=== PATIENT | female | born 1980 | race Caucasian/White ===

== ENCOUNTER 2020-08-13 13:43 | Emergency (ER) | payer OTHER ==
[~2020-08-13 13:43] MED LIST: FIORICET TAB1 EA PO; LEVAQUIN500 MG PO; NICOTINE PATCH1 EAC1 TD; OXYCODONE HCL5 MG PO; PREVPAC PATIEN1 EACH PO; PROTONIX40 MG PO; REMERON15 MG PO; ROXICODONE TAB 55 MG PO; ZOFRAN 4 MG TAB4 MG PO; [UNRECOGNIZED DRUG - OTHER] PO
[2020-08-13 15:29] LABS: HEMOGLOBIN 7.7 gm/dl (12.3-15.3); RED BLOOD COUNT 3.66 M/UL (4.00-5.10); WHITE BLOOD COUNT 19.9 K/UL (4.5-11.0)
[2020-08-13 16:42] LABS: BUN/CREATININE RATIO 14 (0-10)
== END 2020-08-13 22:16 | disposition home or self-care (01) ==
LOC: ER1 13:43
PROVIDERS: Physician Assistant
DX: A41.9 Sepsis, unspecified organism (principal); K65.1 Peritoneal abscess; R19.7 Diarrhea, unspecified; E11.9 Type 2 diabetes mellitus without complications; F17.200 Nicotine dependence, unspecified, uncomplicated; Z86.711 Personal history of pulmonary embolism; Z90.710 Acquired absence of both cervix and uterus; Z88.5 Allergy status to narcotic agent; Z87.19 Personal history of other diseases of the digestive system
CPT/HCPCS: 80053; 82150; 82272; 83605; 83690; 84703; 85025; 86850; 86900; 86901; 87040; 96365; 96366; 96368; 96375; 96376; 99285; C9113; J1170; J2270; J2405; J2543; J2550; J7030; Q9967